=== PATIENT | female | born 1955 | race Caucasian/White ===

== ENCOUNTER 2020-08-05 10:37 | Emergency (ER) | payer OTHER, SELFPAY ==
[2020-08-05 10:38] VITALS: BP 156/104; PULSE 93; RESP 17; TEMP 36.6; O2SAT 99; BMI 31.8
--- NOTE | 2020-08-05 10:39 | NURSING ---
NO OLD EKGS
--- NOTE | 2020-08-05 10:42 | EKG12_ITS ---
Test Reason : CP Blood Pressure : / mmHG Vent. Rate : 079 BPM Atrial Rate : 079 BPM P-R Int : 150 ms QRS Dur : 092 ms QT Int : 398 ms P-R-T Axes : 044 -37 037 degrees QTc Int : 456 ms Normal sinus rhythm Left axis deviation Abnormal ECG Confirmed by COY ALONSO, ALEX ([id number]), acquisition editor ASA JALLOH ([id number]) on 08/10/2020 10:16:12 A M Referred By: DEVI Confirmed By:PANFILO CESPEDES MD
--- NOTE | 2020-08-05 10:43 | ED.VIS.GEN ---
History of Present Illness Chief Complaint: Chest Pain Informant: Patient Onset: Weeks - 1 Narrative: 1 week intermittent left mid chest pain radiates to the back. States chronic mild dyspnea. No nausea. No pain in the neck or arms. Denies any recent illness. No fevers. Symptoms today started 25 minutes prior to arrival lasting longer than normal. Currently aching and dull sensation 4 out of 10. Stress test years ago no history of heart cath. History of hypercholesterolemia. Father with HI at the age of 60. Denies hypertension diabetes or tobacco history. No recent travel, surgeries, or immobilizations. No history of PE or DVT. Past Medical History - Allergies and Home Meds Allergies/Adverse Reactions: Allergies No Known Allergies Allergy (Verified 08/05/20 10:45) Primary Care Physician: Vidal Jj MD [Primary Care Provider] - Past Medical History: - - Hypercholesterolemia Smoking Status: Former smoker Review of Systems General: Denies: Chills, Fever, Sweats Eyes: Denies: Visual changes - bilaterally, Diplopia ENT: Denies: Rhinorrhea, Sore throat Cardiovascular: Reports: Chest pain. Denies: Palpitations Respiratory: Denies: Dyspnea, Cough, Dyspnea on exertion Gastrointestinal: Denies: Abdominal pain, Nausea, Vomiting, Diarrhea, Melena, Hematochezia Genitourinary: Denies: Dysuria, Hematuria, Frequency Musculoskeletal: Denies: Back pain, Extremity Pain Skin: Denies: Rash, Wounds Neurological: Denies: Headache, Weakness, Numbness Physical Exam Vital Signs/Narrative: Vital Signs Temp Pulse Resp BP Pulse Ox 08/05/20 10:38 97.8 F 93 17 156/104 H 99 Inital Vital Signs reviewed: Yes General: Well nourished, Well developed, No Acute Distress Head: Normocephalic, Atraumatic Eyes: Perrl, EOMI ENT: Moist mucous membranes, No rhinorrhea Neck: Supple, Nontender Cardiovascular: Regular rate, Regular rhythm, No murmurs Respiratory: No distress, CTA bilaterally, Chest nontender Abdomen: Soft, Nontender, Nondistended, Normal bowel sounds Back: Nontender, Normal Inspection Extremities: Nontender, No edema Skin: Normal color, No rash Neurological: Alert, Oriented x3, Cranial nerves II-XII grossly intact, Normal Strength, Normal Sensation Psychological: Normal affect, Normal Mood Diagnostic/Tx/Re-eval Chest X-Ray - ED: 1 View, Read by ED Physician, Read by Radiologist, No Acute Disease Abnormal Lab Results 08/05/20 08/05/20 08/05/20 10:59 10:59 11:55 WBC 6.1 RBC 4.48 Hgb 13.9 Hct 41.9 MCV 93.5 MCH 31.0 MCHC 33.2 RDW Std Deviation 46.0 H RDW Coeff of Jaimie 13.5 Plt Count 312 MPV 8.8 Immature Gran % (Auto) 0.300 Neut % (Auto) 50.2 Lymph % (Auto) 40.6 [place] % (Auto) 8.0 Eos % (Auto) 0.7 Baso % (Auto) 0.2 Absolute Neuts (auto) 3.1 Absolute Lymphs (auto) 2.49 Nucleated RBC % 0 Sodium Cancelled 139 Potassium Cancelled 3.5 Chloride Cancelled 104 Carbon Dioxide Cancelled 29.0 Anion Gap Cancelled 6 BUN Cancelled 10 Creatinine Cancelled 0.67 Estim Creat Clear Calc Cancelled 77.34 Est GFR (MDRD) Af Amer Cancelled 114 Est GFR (MDRD) Non-Af Cancelled 95 BUN/Creatinine Ratio Cancelled 14.9 Glucose Cancelled 92 Calcium Cancelled 9.5 Troponin I Cancelled < 0.015 - EKG Initial EKG Interpretation: Sinus Rhythm - Sinus rate of 79, no ST changes, isolated T wave inversion in leads III. Nonspecific.. QTc 456. - Medical Decision Making Patient EKG nonspecific T wave inversion in leads III. Aspirin given cardiac work-up negative. Chest x-ray 1 view reviewed by myself does not know any acute process per radiology there is atelectasis noted right side. No infiltrates. Reevaluation patient was symptom-free. She had transient return of symptoms in the ED. Her heart score is a 2. Discussed heart pathway guideline with the patient with 2% risk at 30 days with her low risk. Discussed obtaining a 3-hour cardiac enzyme however she declines at this time. Discussed with patient close follow-up with her PCP for further outpatient testing. Strict return precautions. Denies any respiratory symptoms or concerns for PE. Patient is being discharged under pandemic conditions under declared global, national and state disaster activation, with limited medical resources. Patient and community understands this. Results discussed in layman's terms to the patient satisfaction. All questions answered in layman's terms. Patient understands importance of follow-up care as directed. Patient has been instructed to return to the ED immediately if new symptoms, problems, or questions occur. We mutually agree with the plan of disposition. The patient understand that they may call or return with any questions or concerns at any time. ED Disposition - Plan for ED Patient: Disposition: Home or Assisted Living Diagnosis: Acute chest pain Instructions: ED Chest Pain, Uncertain Cause Referrals: Vidal Jj MD [Primary Care Provider] - 3-5 Days
[2020-08-05] MEDS: Aspirin 81 MG TAB.CHEW 324 MG PO (10:55)
[2020-08-05 10:56] VITALS: O2SAT 98
--- NOTE | 2020-08-05 10:58 | RAD_ITS ---
STUDY: X-RAY CHEST REASON FOR EXAM: Female, 65 years old. chest pain TECHNIQUE: Single AP portable view of the chest. COMPARISON: None. FINDINGS: Subsegmental atelectases are noted in the right and left lung bases. There is no demonstrated pleural abnormality. Normal size heart. Normal mediastinum and renae. Normal visualized pulmonary arteries. Normal visualized aortic arch and descending thoracic aorta. Normal visualized thoracic spine. There is degenerative osteoarthritis of the bilateral shoulders. There is no demonstrated abnormality of the visualized soft tissue structures of the upper abdomen. RAD/Chest 1 View (Portable) IMPRESSION: Degenerative changes, as described above. No demonstrated acute cardiopulmonary process. Electronically Signed: Kimi Moreno MD at 11:20 EST Tel , Service support ,
[2020-08-05 11:03] LABS: Absolute Lymphocyte Count 2.49 X10^3/uL (0.83-4.51); Absolute Neutrophil Count 3.1 X10^3/uL (2.0-7.7); Basophil# 0.01 X10^3/uL; Basophil% 0.2 % (0-1); Eosinophil# 0.04 X10^3/uL; Eosinophils% 0.7 % (0-5); Hematocrit 41.9 % (37-47); Hemoglobin 13.9 g/dL (12.0-15.0); Lymphocyte # 2.49 X10^3/ul (4.0); Lymphocyte % 40.6 % (19-41); Mean Corp Hgb Conc 33.2 g/dL (32-36); Mean Corpuscular Volume 93.5 fL (81-99); Mean Platelet Vol. 8.8 fl (6.2-12.0); Monocyte# 0.49 X10^3/uL; NRBC Flagged by Analyzer 0 % (0-5); Neutrophil # 3.09 X10^3/uL (2.7-7.7); Neutrophil % 50.2 % (47-70); Platelet Count 312 K/mm3 (150-450); RBC Distribution Width CV 13.5 % (11.6-14.6); Red Blood Count 4.48 M/mm3 (4.2-5.4); White Blood Count 6.1 K/mm3 (4.4-11.0)
--- NOTE | 2020-08-05 11:24 | NURSING ---
NEEDS GREEN TOP REDRAWN, HEMOLIZED, PER LAB
[2020-08-05 12:19] LABS: Anion Gap 6 (5-15); BUN 10 mg/dL (7-18); BUN/Creat Ratio 14.9 RATIO (10-20); Calcium,Total 9.5 mg/dL (8.5-10.1); Chloride 104 mmol/L (98-107); Creatinine, Serum 0.67 mg/dL (0.55-1.02); EST Glomerular Filtration Rate 95 mL/min (>60); Est Glom Filt Rate - Afr Amer 114 mL/min (>60); Estimated Creatinine Clearance 77.34 ml/min; Glucose 92 mg/dL (74-106); Potassium 3.5 mmol/L (3.5-5.1); Sodium Level 139 mmol/L (136-145)
[2020-08-05 13:06] VITALS: BP 139/88; PULSE 88; RESP 16
== END 2020-08-05 13:07 | disposition home or self-care (01) ==
PROVIDERS: Emergency Provider Emergency Medicine; PCP Family Medicine
DX: R07.9 Chest pain, unspecified (principal); Z87.891 Personal history of nicotine dependence
CPT/HCPCS: 71045; 80048; 84484; 85025; 93005; 99285; A4216

== ENCOUNTER 2020-08-14 14:57 | Outpatient (RCR) | payer OTHER, SELFPAY ==
[2020-08-14] MEDS: COVID-19 VACC, MRNA(PFIZER)/PF 30 MCG/0.3 ML SYRINGE IM (13:20)
[2020-09-04] MEDS: COVID-19 VACC, MRNA(PFIZER)/PF 30 MCG/0.3 ML SYRINGE IM (12:29)
== END 2020-08-14 23:59 ==
LOC: IMMUN 14:57
PROVIDERS: PCP Family Medicine; Visit Provider Family Medicine
DX: Z23 Encounter for immunization (principal)
CPT/HCPCS: 0001A; 0002A; 91300